=== PATIENT | male | born 1970 ===

== ENCOUNTER → 2024-01-30 | Outpatient (CLI) | payer BC ==
[~2024-01-30] VITALS: Ht 172.7 cm; Wt 95.7 kg
== END | disposition home or self-care (01) ==
LOC: Rad HDHVI 08:25
PROVIDERS: ATTEND Internal Medicine Cardiovascular Disease
DX: R00.0 Tachycardia, unspecified (principal); I10 Essential (primary) hypertension; R06.02 Shortness of breath; I25.10 Atherosclerotic heart disease of native coronary artery without angina pectoris; E78.00 Pure hypercholesterolemia, unspecified; I25.2 Old myocardial infarction; I25.5 Ischemic cardiomyopathy; I21.02 ST elevation (STEMI) myocardial infarction involving left anterior descending coronary artery; Z82.49 Family history of ischemic heart disease and other diseases of the circulatory system; Z79.899 Other long term (current) drug therapy
CPT/HCPCS: 78452; 93017; 93306; 96374; A9500